=== PATIENT | male | born 1945 | race Caucasian/White ===

== ENCOUNTER 2017-06-09 10:20 | Outpatient (CLI) | payer OTHER ==
[~2017-06-09 10:20] MED LIST: ATORVASTATIN CA10 MG PO; CENTRUM CARDIO1 EACH PO; DULCOLAX5 MG PO; OMEGA 3 FISH OI1 CAP PO; PERCOCET 5/3251 TAB PO
== END 2017-06-09 10:43 | disposition home or self-care (01) ==
LOC: LAB 10:20
DX: B20 Human immunodeficiency virus [HIV] disease (principal); B19.9 Unspecified viral hepatitis without hepatic coma; B15.9 Hepatitis A without hepatic coma; E78.1 Pure hyperglyceridemia; D64.0 Hereditary sideroblastic anemia; E03.8 Other specified hypothyroidism; E78.4 Other hyperlipidemia; I10 Essential (primary) hypertension; Z11.9 Encounter for screening for infectious and parasitic diseases, unspecified

== ENCOUNTER 2017-07-13 10:59 | Outpatient (CLI) | payer OTHER | END 2017-07-13 11:03 | disposition home or self-care (01) | LOC: LAB 10:59 | DX: P35.2 Congenital herpesviral [herpes simplex] infection (principal) ==

== ENCOUNTER → 2017-08-28 10:10 | Outpatient (CLI) | payer OTHER | END | disposition home or self-care (01) | LOC: LAB 10:10 | DX: N39.0 Urinary tract infection, site not specified (principal); E78.1 Pure hyperglyceridemia; N41.0 Acute prostatitis; C18.9 Malignant neoplasm of colon, unspecified; E78.00 Pure hypercholesterolemia, unspecified; Z12.9 Encounter for screening for malignant neoplasm, site unspecified; Z12.11 Encounter for screening for malignant neoplasm of colon; I20.8 Other forms of angina pectoris; Z03.89 Encounter for observation for other suspected diseases and conditions ruled out; R97.20 Elevated prostate specific antigen [PSA] ==

== ENCOUNTER 2018-01-15 10:49 | Outpatient (CLI) | payer OTHER | END 2018-01-15 11:09 | disposition home or self-care (01) | LOC: RAD 10:49 | DX: G47.39 Other sleep apnea (principal); J32.8 Other chronic sinusitis ==

== ENCOUNTER 2018-10-01 07:30 | Outpatient (CLI) | payer OTHER | END 2018-10-01 12:31 | disposition home or self-care (01) | LOC: LAB 07:30 | DX: E78.2 Mixed hyperlipidemia (principal); R73.02 Impaired glucose tolerance (oral); E55.9 Vitamin D deficiency, unspecified; E03.8 Other specified hypothyroidism ==

== ENCOUNTER 2019-01-21 08:35 | Outpatient (CLI) | payer OTHER | END 2019-01-21 08:45 | disposition home or self-care (01) | LOC: LAB 08:35 | DX: E78.00 Pure hypercholesterolemia, unspecified (principal); J45.41 Moderate persistent asthma with (acute) exacerbation; J11.1 Influenza due to unidentified influenza virus with other respiratory manifestations ==

== ENCOUNTER → 2019-01-30 | Outpatient (CLI) | payer OTHER | END | disposition home or self-care (01) | LOC: MRI 14:08 | DX: G30.8 Other Alzheimer's disease (principal) | CPT/HCPCS: 70551 ==

== ENCOUNTER → 2019-05-06 | Outpatient (CLI) | payer OTHER | END | disposition home or self-care (01) | LOC: RAD 11:16 | DX: M79.671 Pain in right foot (principal) ==

== ENCOUNTER 2019-09-27 07:57 | Outpatient (CLI) | payer OTHER | END 2019-09-27 08:03 | disposition home or self-care (01) | LOC: LAB 07:57 | PROVIDERS: ATTEND Internal Medicine Cardiovascular Disease | DX: E78.1 Pure hyperglyceridemia (principal); Z12.11 Encounter for screening for malignant neoplasm of colon; N39.0 Urinary tract infection, site not specified; N41.8 Other inflammatory diseases of prostate; E78.00 Pure hypercholesterolemia, unspecified; Z13.0 Encounter for screening for diseases of the blood and blood-forming organs and certain disorders involving the immune mechanism ==

== ENCOUNTER → 2020-06-29 09:07 | Outpatient (CLI) | payer OTHER | END | disposition home or self-care (01) | LOC: LAB 09:07 | PROVIDERS: ATTEND Internal Medicine Cardiovascular Disease | DX: E78.1 Pure hyperglyceridemia (principal); E78.01 Familial hypercholesterolemia ==

== ENCOUNTER 2020-08-20 14:27 | Outpatient (CLI) | payer OTHER | END 2020-08-20 14:35 | disposition home or self-care (01) | LOC: MRI 14:27 | PROVIDERS: ATTEND Internal Medicine Cardiovascular Disease | DX: M11.261 Other chondrocalcinosis, right knee (principal) | CPT/HCPCS: 73718 ==

== ENCOUNTER 2020-08-28 11:14 | Outpatient (CLI) | payer OTHER | END 2020-08-28 11:15 | disposition home or self-care (01) | LOC: NUCLEAR 11:14 | PROVIDERS: ATTEND Internal Medicine Cardiovascular Disease | DX: I87.2 Venous insufficiency (chronic) (peripheral) (principal) ==

== ENCOUNTER 2020-10-05 09:55 | Outpatient (CLI) | payer OTHER | END 2020-10-05 16:49 | disposition home or self-care (01) | LOC: LAB 09:55 | PROVIDERS: ATTEND Internal Medicine Cardiovascular Disease | DX: N41.8 Other inflammatory diseases of prostate (principal); Z12.11 Encounter for screening for malignant neoplasm of colon; Z12.12 Encounter for screening for malignant neoplasm of rectum; R97.0 Elevated carcinoembryonic antigen [CEA]; Z83.71 Family history of colonic polyps; N39.0 Urinary tract infection, site not specified ==

== ENCOUNTER 2020-10-22 14:28 | Outpatient (CLI) | payer OTHER | END 2020-10-22 14:36 | disposition home or self-care (01) | LOC: RAD 14:28 | PROVIDERS: ATTEND Physical Medicine & Rehabilitation Sports Medicine | DX: M16.0 Bilateral primary osteoarthritis of hip (principal) ==

== ENCOUNTER 2021-01-28 13:12 | Outpatient (CLI) | payer OTHER | END 2021-01-28 13:20 | disposition home or self-care (01) | LOC: MRI 13:12 | PROVIDERS: ATTEND Physical Medicine & Rehabilitation Sports Medicine | DX: M43.12 Spondylolisthesis, cervical region (principal); M47.892 Other spondylosis, cervical region; M54.12 Radiculopathy, cervical region; M54.2 Cervicalgia | CPT/HCPCS: 72141 ==

== ENCOUNTER 2021-02-15 08:18 | Outpatient (CLI) | payer OTHER | END 2021-02-15 08:20 | disposition home or self-care (01) | LOC: LAB 08:18 | PROVIDERS: ATTEND Internal Medicine Cardiovascular Disease | DX: M79.89 Other specified soft tissue disorders (principal); G72.49 Other inflammatory and immune myopathies, not elsewhere classified ==

== ENCOUNTER 2021-02-18 12:46 | Outpatient (CLI) | payer OTHER | END 2021-02-18 13:35 | disposition home or self-care (01) | LOC: RAD 12:46 | PROVIDERS: ATTEND Physical Medicine & Rehabilitation Sports Medicine | DX: M25.511 Pain in right shoulder (principal); M25.512 Pain in left shoulder ==

== ENCOUNTER 2021-08-09 09:00 | Outpatient (CLI) | payer OTHER | END 2021-08-09 09:01 | disposition home or self-care (01) | LOC: LAB 09:00 | PROVIDERS: ATTEND Internal Medicine Cardiovascular Disease | DX: E78.00 Pure hypercholesterolemia, unspecified (principal); E78.1 Pure hyperglyceridemia; I10 Essential (primary) hypertension; N40.0 Benign prostatic hyperplasia without lower urinary tract symptoms; D64.9 Anemia, unspecified; R97.8 Other abnormal tumor markers; E11.9 Type 2 diabetes mellitus without complications; E03.9 Hypothyroidism, unspecified; N39.0 Urinary tract infection, site not specified; Z13.0 Encounter for screening for diseases of the blood and blood-forming organs and certain disorders involving the immune mechanism ==

== ENCOUNTER 2022-01-16 12:33 | Emergency (ER) | payer OTHER ==
[~2022-01-16] VITALS: Ht 190.5 cm; Wt 84.8 kg
[~2022-01-16 12:33] MED LIST changes: +DOLOGEN CAPLET1 EACH PO; +TUSNEL LIQUID178 ML PO; +ZITHROMAX500 MG PO
== END 2022-01-16 21:40 | disposition home or self-care (01) ==
LOC: ER 12:33
DX: R10.9 Unspecified abdominal pain (principal); Z20.822 Contact with and (suspected) exposure to COVID-19; I10 Essential (primary) hypertension; K59.00 Constipation, unspecified

== ENCOUNTER 2022-01-29 15:29 | Outpatient (CLI) | payer OTHER | END 2022-01-29 15:35 | disposition home or self-care (01) | LOC: PPH VACUNA 15:29 | PROVIDERS: ATTEND Emergency Medicine Pediatric Emergency Medicine | DX: Z23 Encounter for immunization (principal) ==

== ENCOUNTER 2022-04-17 10:43 | Outpatient (CLI) | payer OTHER ==
[~2022-04-17 10:43] MED LIST changes: +NEURONTIN600 M1 PO; +PERCOCET 5-3251 EACH PO; +POLY119PG PO
== END 2022-04-17 10:53 | disposition home or self-care (01) ==
LOC: PPH VACUNA 10:43
PROVIDERS: ATTEND Emergency Medicine Pediatric Emergency Medicine
DX: Z23 Encounter for immunization (principal)

== ENCOUNTER → 2022-06-23 | Outpatient (CLI) | payer OTHER | END | disposition home or self-care (01) | LOC: TOM 08:59 | PROVIDERS: ATTEND Internal Medicine Cardiovascular Disease | DX: R55 Syncope and collapse (principal) | CPT/HCPCS: 70553; Q9965 ==

== ENCOUNTER → 2022-06-29 | Outpatient (CLI) | payer OTHER | END | disposition home or self-care (01) | LOC: NUCLEAR 10:00 | PROVIDERS: ATTEND Internal Medicine Cardiovascular Disease | DX: R55 Syncope and collapse (principal) ==

== ENCOUNTER 2022-08-07 14:24 | Outpatient (CLI) | payer OTHER | END 2022-08-07 14:28 | disposition home or self-care (01) | LOC: RAD 14:24 | PROVIDERS: ATTEND Internal Medicine Cardiovascular Disease | DX: M25.521 Pain in right elbow (principal) ==

== ENCOUNTER 2022-08-07 14:44 | Outpatient (CLI) | payer OTHER | END 2022-08-07 14:45 | disposition home or self-care (01) | LOC: LAB 14:44 | PROVIDERS: ATTEND Internal Medicine Cardiovascular Disease | DX: L03.113 Cellulitis of right upper limb (principal); M25.521 Pain in right elbow ==

== ENCOUNTER 2022-10-21 07:40 | Outpatient (CLI) | payer OTHER | END 2022-10-21 07:42 | disposition home or self-care (01) | LOC: LAB 07:40 | DX: D64.9 Anemia, unspecified (principal); E87.1 Hypo-osmolality and hyponatremia; N39.0 Urinary tract infection, site not specified; N28.9 Disorder of kidney and ureter, unspecified; E03.9 Hypothyroidism, unspecified; M79.89 Other specified soft tissue disorders; E78.00 Pure hypercholesterolemia, unspecified ==

== ENCOUNTER 2022-11-25 09:12 | Outpatient (CLI) | payer OTHER | END 2022-11-25 09:17 | disposition home or self-care (01) | LOC: LAB 09:12 | PROVIDERS: ATTEND Urology | DX: C61 Malignant neoplasm of prostate (principal); Z11.9 Encounter for screening for infectious and parasitic diseases, unspecified; Z78.9 Other specified health status ==

== ENCOUNTER → 2022-12-04 09:20 | Outpatient (CLI) | payer OTHER | END | disposition home or self-care (01) | LOC: NUCLEAR 11-12 09:00 | PROVIDERS: ATTEND Physical Medicine & Rehabilitation Sports Medicine | DX: I87.2 Venous insufficiency (chronic) (peripheral) (principal) ==

== ENCOUNTER 2022-12-08 09:36 | Outpatient (CLI) | payer OTHER | END 2022-12-08 09:37 | disposition home or self-care (01) | LOC: NUCLEAR 09:36 | PROVIDERS: ATTEND Physical Medicine & Rehabilitation Sports Medicine | DX: I73.9 Peripheral vascular disease, unspecified (principal) ==

== ENCOUNTER 2023-06-05 11:04 | Outpatient (CLI) | payer OTHER ==
[2023-06-05 12:16] LABS: PH,URINE 7.5 (5.0-8.0); URINE APPEARANCE Clear; URINE BILIRRUBIN Negative (NEGATIVE); URINE BLOOD Negative; URINE COLOR Yellow; URINE GLUCOSE Negative (NEGATIVE); URINE LEUKOCYTE Negative; URINE NITRATE Negative; URINE PROTEIN Negative (NEGATIVE); URINE UROBILINOGEN 0.2 E.U./dl
[2023-06-05 12:20] LABS: URINE RBC 2.7 uL (0.0-20.8)
[2023-06-05 12:25] LABS: HEMATOCRIT 42.8 % (39.0-48.0); HEMOGLOBIN 14.6 g/dL (13-16.00); MEAN CELL VOLUME 96.9 fL (80.0-100.00); MEAN CORPUSCULAR HEMOGLOBIN 33.1 pg (27.00-32.0); MEAN CORPUSCULAR HGB CONC 34.1 g/dl (32.0-36.0); PLATELET COUNT 155 K/uL (150-450); RED BLOOD COUNT 4.42 M/uL (4.00-6.00); RED CELL DISTRIBUTION WIDTH 13.1 % (11.5-14.5)
[2023-06-05 12:26] LABS: INR 1.09; PARTIAL THROMBOPLASTIN TIME 30.9 SECONDS (22.0-34.0); PROTHROMBIN TIME 11.4 SECONDS (9.0-11.5)
[2023-06-05 12:30] LABS: URINE BACTERIA 2.5 uL (0.0-1933); URINE EPITHELIAL CELLS 0.3 uL (0.0-38.8); URINE WBC 0.4 uL (0.0-23.2)
[2023-06-05 12:36] LABS: ALBUMIN 3.9 gm/dL (3.4-5.0); BILIRUBIN TOTAL 0.54 mg/dL (0.3-1.2); CALCIUM 9.4 mg/dL (8.5-10.1); CHOL HDL RATIO 1.8 (0-5.0); CREATININE SERUM 0.77 mg/dL (0.70-1.30); GFR 97.71; GLOBULINA 3.1 G/DL (2.4-3.5); POTASSIUM 4.01 mEq/L (3.5-5.1); PROSTATIC SPECIFIC ANTIGEN 0.012 NG/ML (0.010-4.00)
[2023-06-05 13:36] LABS: RH NEGATIVE
== END 2023-06-05 11:10 | disposition home or self-care (01) ==
LOC: LAB 11:04
PROVIDERS: ATTEND Internal Medicine Cardiovascular Disease
DX: Z79.01 Long term (current) use of anticoagulants (principal); N39.0 Urinary tract infection, site not specified; N41.9 Inflammatory disease of prostate, unspecified; I10 Essential (primary) hypertension; E78.9 Disorder of lipoprotein metabolism, unspecified; E11.9 Type 2 diabetes mellitus without complications; E03.8 Other specified hypothyroidism

== ENCOUNTER 2024-04-08 10:17 | Outpatient (CLI) | payer OTHER ==
[2024-04-08 11:20] LABS: HEMOGLOBIN 15.1 g/dL (13-16.00); MEAN CELL VOLUME 93.5 fL (80.0-100.00); MEAN CORPUSCULAR HEMOGLOBIN 32.8 pg (27.00-32.0); MEAN CORPUSCULAR HGB CONC 35.1 g/dl (32.0-36.0); PLATELET COUNT 138 K/uL (150-450); RED BLOOD COUNT 4.61 M/uL (4.00-6.00); RED CELL DISTRIBUTION WIDTH 14.1 % (11.5-14.5)
[2024-04-08 11:29] LABS: ERYTHROCYTE SEDIMENTATION RATE 6 mm/hr
[2024-04-08 12:02] LABS: CALCIUM 9.1 mg/dL (8.5-10.1); CREATININE SERUM 0.78 mg/dL (0.70-1.30); GFR 96.02; POTASSIUM 4.07 mEq/L (3.5-5.1)
[2024-04-08 13:09] LABS: ob NEGATIVE (NEGATIVE)
== END 2024-04-08 10:33 | disposition home or self-care (01) ==
LOC: LAB 10:17
PROVIDERS: ATTEND Internal Medicine Cardiovascular Disease
DX: E11.9 Type 2 diabetes mellitus without complications (principal); I10 Essential (primary) hypertension

== ENCOUNTER → 2024-07-15 09:27 | Outpatient (CLI) | payer OTHER ==
[2024-07-15 11:57] LABS: HEMATOCRIT 42.7 % (39.0-48.0); HEMOGLOBIN 14.3 g/dL (13-16.00); MEAN CELL VOLUME 95.9 fL (80.0-100.00); MEAN CORPUSCULAR HEMOGLOBIN 32.2 pg (27.00-32.0); MEAN CORPUSCULAR HGB CONC 33.6 g/dl (32.0-36.0); PLATELET COUNT 146 K/uL (150-450); RED BLOOD COUNT 4.45 M/uL (4.00-6.00); RED CELL DISTRIBUTION WIDTH 13.5 % (11.5-14.5)
[2024-07-15 12:14] LABS: INR 1.1; PROTHROMBIN TIME 11.9 SECONDS (9.0-11.5)
[2024-07-15 12:23] LABS: ERYTHROCYTE SEDIMENTATION RATE 7 mm/hr
[2024-07-15 12:26] LABS: % SATURACION 35.7 % (20-50); ALBUMIN 3.7 gm/dL (3.4-5.0); BILIRUBIN TOTAL 0.68 mg/dL (0.3-1.2); CALCIUM 8.7 mg/dL (8.5-10.1); CREATININE SERUM 0.7 mg/dL (0.70-1.30); FERRITIN 59.2 NG/ML (26-388); GFR 108.79; GLOBULINA 3.2 G/DL (2.4-3.5); POTASSIUM 4.12 mEq/L (3.5-5.1); TOTAL PROTEIN 6.9 gm/dL (6.4-8.2)
[2024-07-16 09:56] LABS: PLATELET ESTIMATE DECREASED (NORMAL)
[2024-07-16 12:04] LABS: FOLIC ACID 13.01 ng/ml (4.78-20)
== END | disposition home or self-care (01) ==
LOC: LAB 09:27
DX: D72.819 Decreased white blood cell count, unspecified (principal); R79.1 Abnormal coagulation profile; D47.2 Monoclonal gammopathy; D50.0 Iron deficiency anemia secondary to blood loss (chronic); D51.9 Vitamin B12 deficiency anemia, unspecified; Z11.4 Encounter for screening for human immunodeficiency virus [HIV]; Z11.59 Encounter for screening for other viral diseases

== ENCOUNTER 2024-12-16 09:48 | Outpatient (CLI) | payer OTHER | END 2024-12-16 10:10 | disposition home or self-care (01) | LOC: LAB 09:48 | DX: L03.119 Cellulitis of unspecified part of limb (principal); D64.9 Anemia, unspecified ==

== ENCOUNTER 2025-01-02 14:21 | Outpatient (CLI) | payer OTHER | END 2025-01-02 14:23 | disposition home or self-care (01) | LOC: SONOGRAMA 14:21 | PROVIDERS: ATTEND Internal Medicine Infectious Disease | DX: M25.561 Pain in right knee (principal) ==

== ENCOUNTER 2025-01-23 10:21 | Outpatient (CLI) | payer OTHER ==
[2025-01-23 11:30] LABS: BASO % 0.3 % (0.1-1.2); EOS # 0.04 (0.04-0.54); EOS % 1.0 % (0.7-7.0); LYMPH # 1.39 (1.18-3.74); LYMPH % 34.8 % (19.3-53.1); MEAN PLATELET VOLUME 11.40 fl (9.4-12.4); MONO # 0.52 (0.24-0.82); NEUT # 2.01 (1.56-6.13); NEUT % 50.4 % (34.0-71.1); RED CELL DISTRIBUTION WIDTH 12.7 % (11.6-14.4)
[2025-01-23 11:35] LABS: MONO % 13.0 % (4.7-12.5)
[2025-01-23 12:02] LABS: ALT/SGPT 57.0 U/L (12-78); AST/SGOT 37.0 U/L (15-37); BILIRUBIN TOTAL 0.69 mg/dL (0.3-1.2); BUN CREA RATIO 22.0 (7.0-25.0); CREATININE SERUM 0.77 mg/dL (0.70-1.30); GFR 97.21; GLOBULINA 2.6 G/DL (2.4-3.5); GLUCOSE FASTING 98.0 mg/dL (65-100); LDH 214.0 U/L (87-241); OSMOLALITY SERUM 288.0 MOSM/KG (275-295)
== END 2025-01-23 10:27 | disposition home or self-care (01) ==
LOC: LAB 10:21
PROVIDERS: ATTEND Internal Medicine
DX: D64.9 Anemia, unspecified (principal); C94.6 Myelodysplastic disease, not elsewhere classified